=== PATIENT | female | born 1950 | race Caucasian/White ===

== ENCOUNTER 2017-06-23 20:34 | Emergency (ER) | payer MEDICARE, OTHER ==
[~2017-06-23] VITALS: Ht 162.6 cm; Wt 86.2 kg
[2017-06-23 21:25] LABS: BASOPHILS ABSOLUTE AUTO 0.03 K/mm3 (0.00-0.23); BASOPHILS PERCENT AUTO 0 % (0-2); EOSINOPHILS ABSOLUTE AUTO 0.11 K/mm3 (0.00-0.68); EOSINOPHILS PERCENT AUTO 2 % (0-6); Hematocrit 37.6 % (33.0-51.0); Hemoglobin 12.5 g/dL (11.5-16.0); IMMATURE GRAN ABSOLUTE AUTO 0.02 K/mm3 (0.00-0.10); IMMATURE GRAN PERCENT AUTO 0 % (0-1); LYMPHOCYTES PERCENT AUTO 32 % (21-46); MONOCYTES ABSOLUTE AUTO 0.46 K/mm3 (0.16-1.47); MONOCYTES PERCENT AUTO 7 % (4-13); Mean Corpuscular HGB Conc 33.2 g/dL (31.5-36.5); Mean Corpuscular Volume 96 fL (80-100); Mean Platelet Volume 10.6 fL (9.1-12.4); NEUTROPHILS ABSOLUTE AUTO 4.01 K/mm3 (1.96-9.15); NEUTROPHILS PERCENT AUTO 59 % (41-73); Platelet Count 260 K/mm3 (150-400); RDW Coefficient Variation 11.9 % (11.7-14.2); Red Blood Cell Count 3.91 M/mm3 (3.80-5.20); White Blood Cell Count 6.83 K/mm3 (4.00-11.30)
[2017-06-23 21:41] LABS: Bilirubin, Total 0.3 mg/dL (0.1-1.0); Bun/Creatinine Ratio 14.6 (12.0-20.0); Calcium, Blood 9.4 mg/dL (8.5-10.1); Creatinine, Blood 1.03 mg/dL (0.40-1.00); Globulin, Blood 4.2 g/dL (2.2-4.0); Potassium, Blood 4.4 mmol/L (3.5-5.5); Total Protein, Blood 8.2 g/dL (6.4-8.2)
[2017-06-23] MEDS ORDERED: PIOG30 PO (23:50)
[2017-06-23] MEDS ORDERED: ONDA4 PO (23:50)
[2017-06-23] MEDS ORDERED: LEVSOD75 PO (23:50)
[2017-06-23] MEDS ORDERED: HYDCHL25 PO (23:51)
[2017-06-23] MEDS ORDERED: CYCL10 PO (23:51)
[2017-06-23] MEDS ORDERED: LISI20 PO (23:51)
[2017-06-23] MEDS ORDERED: IBUP600 PO (23:51)
[2017-06-23] MEDS ORDERED: LOVA40 PO (23:51)
[2017-06-23] MEDS ORDERED: METF500C PO (23:52)
[2017-06-23] MEDS ORDERED: ASPI81CH PO (23:52)
[2017-06-24 00:15] LABS: Source, Urine Clean Catch
[2017-06-24 00:18] LABS: Bilirubin, Urine Neg (Neg); Blood, Urine 1+ (Neg); Glucose Qualitative, Urine Neg (Neg); Ketones, Urine Neg (Neg); Leukocyte Esterase, Urine 3+ (Neg); Nitrite, Urine Neg (Neg); Protein, Urine 2+ (Neg); Urobilinogen, Urine NORM (Normal)
[2017-06-24 00:24] LABS: Appearance, Urine Hazy (Clear); Color, Urine Yellow (P-Yellow)
[2017-06-24 00:25] LABS: Amorphous Light (0-Heavy); Bacteria Mod /hpf; Red Blood Cells, Urine 0-2 /hpf (0-2); Squamous Epithelial Cells Few /hpf (Few); White Blood Cells, Urine 25-50 /hpf (0-5)
[2017-06-24 00:35] LABS: Influenza A Negative (NEGATIVE); Influenza B Negative (NEGATIVE)
[2017-06-24] MEDS ORDERED: Zofran Odt4 MG PO (00:42)
[2017-06-24] MEDS ORDERED: CEPH500 PO ×2 (00:42→16:12)
[2018-03-19] MEDS ORDERED: ASPI325 PO (21:53)
[2018-03-19] MEDS ORDERED: HYDHCL25 PO (21:59)
[2018-03-23] MEDS ORDERED: Vistaril25 MG PO (17:05)
== END 2017-06-24 01:53 | disposition home or self-care (01) ==
LOC: ER 20:34
PROVIDERS: Emergency Medicine
DX: N39.0 Urinary tract infection, site not specified (principal); E86.0 Dehydration; R11.2 Nausea with vomiting, unspecified; Z88.2 Allergy status to sulfonamides; Z88.5 Allergy status to narcotic agent; I10 Essential (primary) hypertension
CPT/HCPCS: 36415; 80053; 81001; 83690; 85025; 87086; 87804; 96361; 96374; 96375; 99283; J0696; J0780; J7030

== ENCOUNTER 2017-06-28 11:16 | Inpatient (IN) | payer MEDICARE, OTHER ==
[~2017-06-28] VITALS: Ht 162.6 cm; Wt 111.2 kg
[~2017-06-28 11:16] MED LIST: ASPI81CH PO; CEPH500 PO; CYCL10 PO; HYDCHL25 PO; IBUP600 PO; LEVSOD75 PO; LISI20 PO; LOVA40 PO; METF500C PO; ONDA4 PO; PIOG30 PO; Zofran Odt4 MG PO
[2017-06-28 11:50] LABS: BASOPHILS ABSOLUTE AUTO 0.03 K/mm3 (0.00-0.23); BASOPHILS PERCENT AUTO 0 % (0-2); EOSINOPHILS ABSOLUTE AUTO 0.04 K/mm3 (0.00-0.68); EOSINOPHILS PERCENT AUTO 1 % (0-6); Hematocrit 37.2 % (33.0-51.0); Hemoglobin 12.6 g/dL (11.5-16.0); IMMATURE GRAN ABSOLUTE AUTO 0.02 K/mm3 (0.00-0.10); IMMATURE GRAN PERCENT AUTO 0 % (0-1); LYMPHOCYTES PERCENT AUTO 41 % (21-46); MONOCYTES ABSOLUTE AUTO 0.64 K/mm3 (0.16-1.47); MONOCYTES PERCENT AUTO 7 % (4-13); Mean Corpuscular HGB 32.1 pg (26.0-34.0); Mean Corpuscular HGB Conc 33.9 g/dL (31.5-36.5); Mean Corpuscular Volume 95 fL (80-100); Mean Platelet Volume 10.3 fL (9.1-12.4); NEUTROPHILS ABSOLUTE AUTO 4.36 K/mm3 (1.96-9.15); NEUTROPHILS PERCENT AUTO 50 % (41-73); Platelet Count 230 K/mm3 (150-400); RDW Coefficient Variation 11.9 % (11.7-14.2); RDW Standard Deviation 41.3 fL (35.1-46.3); Red Blood Cell Count 3.92 M/mm3 (3.80-5.20); White Blood Cell Count 8.69 K/mm3 (4.00-11.30)
[2017-06-28 12:15] LABS: Alanine Aminotransfer (ALT/SGP 33 U/L (12-78); Albumin, Blood 3.6 g/dL (3.4-5.0); Albumin/Globulin Ratio 0.9 (0.8-1.8); Alk Phos 63 U/L (50-136); Anion Gap 13 mmol/L (6-16); Aspartate Aminotrans (AST/SGOT 23 U/L (12-37); Bilirubin, Total 0.3 mg/dL (0.1-1.0); Blood Urea Nitrogen 19 mg/dL (8-24); Bun/Creatinine Ratio 17.1 (12.0-20.0); CO2, Blood 27 mmol/L (21-32); Calcium, Blood 9.3 mg/dL (8.5-10.1); Chloride, Blood 85 mmol/L (98-108); Creatinine, Blood 1.11 mg/dL (0.40-1.00); Globulin, Blood 3.8 g/dL (2.2-4.0); Glomerular Filtration Rate 52 (60-); Glucose, Blood 161 mg/dL (70-99); Potassium, Blood 3.4 mmol/L (3.5-5.5); Sodium, Blood 125 mmol/L (136-145); Total Protein, Blood 7.4 g/dL (6.4-8.2); Troponin I <0.015 ng/mL (0.000-0.040)
[2017-06-28 13:26] LABS: Source, Urine Voided
[2017-06-28 13:40] LABS: Appearance, Urine Clear (Clear); Bilirubin, Urine Neg (Neg); Blood, Urine Neg (Neg); Color, Urine Yellow (P-Yellow); Glucose Qualitative, Urine Neg (Neg); Ketones, Urine 1+ (Neg); Leukocyte Esterase, Urine Neg (Neg); Nitrite, Urine Neg (Neg); Protein, Urine 2+ (Neg); Urobilinogen, Urine NORM (Normal)
[2017-06-28 13:59] LABS: Bacteria Mod /hpf; Red Blood Cells, Urine 0-2 /hpf (0-2); Squamous Epithelial Cells Few /hpf (Few); White Blood Cells, Urine 0-2 /hpf (0-5)
[2017-06-28 17:53] LABS: Influenza A Negative (NEGATIVE); Influenza B Negative (NEGATIVE)
[2017-06-29 05:17] LABS: BASOPHILS ABSOLUTE AUTO 0.03 K/mm3 (0.00-0.23); BASOPHILS PERCENT AUTO 0 % (0-2); EOSINOPHILS ABSOLUTE AUTO 0.11 K/mm3 (0.00-0.68); EOSINOPHILS PERCENT AUTO 1 % (0-6); Hematocrit 33.8 % (33.0-51.0); Hemoglobin 11.6 g/dL (11.5-16.0); IMMATURE GRAN ABSOLUTE AUTO 0.03 K/mm3 (0.00-0.10); IMMATURE GRAN PERCENT AUTO 0 % (0-1); LYMPHOCYTES ABSOLUTE AUTO 3.91 K/mm3 (0.84-5.20); LYMPHOCYTES PERCENT AUTO 42 % (21-46); MONOCYTES ABSOLUTE AUTO 0.83 K/mm3 (0.16-1.47); MONOCYTES PERCENT AUTO 9 % (4-13); Mean Corpuscular HGB 32.4 pg (26.0-34.0); Mean Corpuscular HGB Conc 34.3 g/dL (31.5-36.5); Mean Corpuscular Volume 94 fL (80-100); Mean Platelet Volume 10.4 fL (9.1-12.4); NEUTROPHILS ABSOLUTE AUTO 4.52 K/mm3 (1.96-9.15); NEUTROPHILS PERCENT AUTO 48 % (41-73); Platelet Count 244 K/mm3 (150-400); RDW Standard Deviation 41.7 fL (35.1-46.3); Red Blood Cell Count 3.58 M/mm3 (3.80-5.20); White Blood Cell Count 9.43 K/mm3 (4.00-11.30)
[2017-06-29 05:45] LABS: Anion Gap 9 mmol/L (6-16); Blood Urea Nitrogen 16 mg/dL (8-24); Bun/Creatinine Ratio 16.5 (12.0-20.0); CO2, Blood 28 mmol/L (21-32); Calcium, Blood 8.4 mg/dL (8.5-10.1); Chloride, Blood 92 mmol/L (98-108); Creatinine, Blood 0.97 mg/dL (0.40-1.00); Glomerular Filtration Rate >60 (60-); Glucose, Blood 92 mg/dL (70-99); Potassium, Blood 3.4 mmol/L (3.5-5.5); Sodium, Blood 129 mmol/L (136-145)
[2017-06-30 06:06] LABS: BASOPHILS ABSOLUTE AUTO 0.04 K/mm3 (0.00-0.23); BASOPHILS PERCENT AUTO 1 % (0-2); EOSINOPHILS ABSOLUTE AUTO 0.31 K/mm3 (0.00-0.68); EOSINOPHILS PERCENT AUTO 4 % (0-6); Hematocrit 32.7 % (33.0-51.0); Hemoglobin 11.2 g/dL (11.5-16.0); IMMATURE GRAN ABSOLUTE AUTO 0.03 K/mm3 (0.00-0.10); IMMATURE GRAN PERCENT AUTO 0 % (0-1); LYMPHOCYTES ABSOLUTE AUTO 3.33 K/mm3 (0.84-5.20); LYMPHOCYTES PERCENT AUTO 40 % (21-46); MONOCYTES ABSOLUTE AUTO 0.66 K/mm3 (0.16-1.47); MONOCYTES PERCENT AUTO 8 % (4-13); Mean Corpuscular HGB 32.5 pg (26.0-34.0); Mean Corpuscular HGB Conc 34.3 g/dL (31.5-36.5); Mean Corpuscular Volume 95 fL (80-100); Mean Platelet Volume 10.5 fL (9.1-12.4); NEUTROPHILS ABSOLUTE AUTO 4.03 K/mm3 (1.96-9.15); NEUTROPHILS PERCENT AUTO 48 % (41-73); Platelet Count 226 K/mm3 (150-400); RDW Coefficient Variation 11.9 % (11.7-14.2); RDW Standard Deviation 40.9 fL (35.1-46.3); Red Blood Cell Count 3.45 M/mm3 (3.80-5.20)
[2017-06-30 06:33] LABS: Magnesium, Blood 1.5 mg/dL (1.6-2.4)
[2017-06-30 06:34] LABS: Anion Gap 8 mmol/L (6-16); Blood Urea Nitrogen 9 mg/dL (8-24); Bun/Creatinine Ratio 10.3 (12.0-20.0); CO2, Blood 27 mmol/L (21-32); Calcium, Blood 8.3 mg/dL (8.5-10.1); Chloride, Blood 89 mmol/L (98-108); Creatinine, Blood 0.88 mg/dL (0.40-1.00); Glomerular Filtration Rate >60 (60-); Glucose, Blood 118 mg/dL (70-99); Potassium, Blood 3.6 mmol/L (3.5-5.5); Sodium, Blood 124 mmol/L (136-145)
[2017-06-30 14:46] LABS: Bun/Creatinine Ratio 10.9 (12.0-20.0); Calcium, Blood 8.4 mg/dL (8.5-10.1); Creatinine, Blood 1.01 mg/dL (0.40-1.00); Potassium, Blood 4.2 mmol/L (3.5-5.5)
[2017-07-01 06:43] LABS: Anion Gap 5 mmol/L (6-16); Blood Urea Nitrogen 11 mg/dL (8-24); Bun/Creatinine Ratio 11.9 (12.0-20.0); CO2, Blood 28 mmol/L (21-32); Calcium, Blood 8.1 mg/dL (8.5-10.1); Chloride, Blood 100 mmol/L (98-108); Creatinine, Blood 0.92 mg/dL (0.40-1.00); Glomerular Filtration Rate >60 (60-); Glucose, Blood 119 mg/dL (70-99); Sodium, Blood 133 mmol/L (136-145)
[2017-07-01] MEDS ORDERED: ONDA4 PO (08:12)
[2017-07-01] MEDS ORDERED: Magnesium500 MG PO (08:13)
[2017-07-01] MEDS ORDERED: PANT20 PO (08:14)
[2018-03-19] MEDS ORDERED: ASPI325 PO (21:53)
[2018-03-19] MEDS ORDERED: HYDHCL25 PO (21:59)
[2018-03-23] MEDS ORDERED: Vistaril25 MG PO (17:05)
== END 2017-07-01 09:52 | disposition home or self-care (01) | DRG 641 ==
LOC: ER 11:16 → MEDS 14:05
PROVIDERS: Internal Medicine; Physician Assistant
DX: E87.1 Hypo-osmolality and hyponatremia (principal); E83.42 Hypomagnesemia; E03.9 Hypothyroidism, unspecified; E11.9 Type 2 diabetes mellitus without complications; E78.5 Hyperlipidemia, unspecified; B95.5 Unspecified streptococcus as the cause of diseases classified elsewhere; N39.0 Urinary tract infection, site not specified; E86.0 Dehydration; I10 Essential (primary) hypertension; E87.6 Hypokalemia; R53.1 Weakness; Z79.82 Long term (current) use of aspirin; Z79.899 Other long term (current) drug therapy; Z88.5 Allergy status to narcotic agent; Z88.2 Allergy status to sulfonamides
CPT/HCPCS: 36415; 74160; 80048; 80053; 81001; 82947; 83690; 83735; 83880; 84484; 85025; 87086; 87804; 93005; 93010; 96361; 96374; 97161; 97530; 99285; C9113; G8978; G8979; G8980; J1650; J2405; J3475; J7030; P9612; Q9967

== ENCOUNTER 2022-06-22 23:54 | Inpatient (IN) | payer MEDICARE, OTHER ==
[~2022-06-22] VITALS: Ht 162.6 cm; Wt 104.1 kg
[~2022-06-22 23:54] MED LIST changes: +ASPI325 PO; +HYDHCL25 PO; +Magnesium500 MG PO; +PANT20 PO; +Vistaril25 MG PO
[2022-06-23 00:50] LABS: BASOPHILS ABSOLUTE AUTO 0.04 K/mm3 (0.00-0.23); BASOPHILS PERCENT AUTO 1 % (0-2); EOSINOPHILS PERCENT AUTO 4 % (0-6); Hemoglobin 12.5 g/dL (11.5-16.0); IMMATURE GRAN ABSOLUTE AUTO 0.03 K/mm3 (0.00-0.10); IMMATURE GRAN PERCENT AUTO 0 % (0-1); LYMPHOCYTES ABSOLUTE AUTO 2.73 K/mm3 (0.84-5.20); LYMPHOCYTES PERCENT AUTO 32 % (21-46); MONOCYTES ABSOLUTE AUTO 0.64 K/mm3 (0.16-1.47); MONOCYTES PERCENT AUTO 8 % (4-13); Mean Corpuscular HGB 32.1 pg (26.0-34.0); Mean Corpuscular HGB Conc 32.1 g/dL (31.5-36.5); Mean Corpuscular Volume 100 fL (80-100); Mean Platelet Volume 11.8 fL (9.1-12.4); NEUTROPHILS PERCENT AUTO 56 % (41-73); Platelet Count 183 K/mm3 (150-400); RDW Coefficient Variation 13.3 % (11.7-14.2); RDW Standard Deviation 49.1 fL (35.1-46.3); Red Blood Cell Count 3.89 M/mm3 (3.80-5.20); White Blood Cell Count 8.44 K/mm3 (4.00-11.30)
[2022-06-23 00:58] LABS: Influenza A, PCR NEGATIVE (NEGATIVE); Influenza B, PCR NEGATIVE (NEGATIVE); SARS-Cov-2 (COVID-19) PCR, MMC NEGATIVE (NEGATIVE)
[2022-06-23 01:03] LABS: Source, Urine Straight Cath
[2022-06-23 01:13] LABS: Resp Syncytial Virus, PCR POSITIVE (NEGATIVE)
[2022-06-23 01:14] LABS: Magnesium, Blood 1.4 mg/dL (1.6-2.4)
[2022-06-23 01:17] LABS: Albumin, Blood 3.5 g/dL (3.4-5.0); Albumin/Globulin Ratio 0.9 (0.8-1.8); Bilirubin, Total 0.2 mg/dL (0.1-1.0); Bun/Creatinine Ratio 13.6 (12.0-20.0); Calcium, Blood 8.5 mg/dL (8.5-10.1); Creatinine, Blood 1.4 mg/dL (0.40-1.00); Globulin, Blood 3.7 g/dL (2.2-4.0); Potassium, Blood 4.5 mmol/L (3.5-5.5); Thyroid Stimulating Hormone 1.52 uIU/mL (0.360-4.800); Total Protein, Blood 7.2 g/dL (6.4-8.2)
[2022-06-23 01:54] LABS: Bilirubin, Urine Neg (Neg); Blood, Urine Neg (Neg); Glucose Qualitative, Urine 4+ (Neg); Ketones, Urine Neg (Neg); Leukocyte Esterase, Urine Neg (Neg); Nitrite, Urine Neg (Neg); Protein, Urine 1+ (Neg); Specific Gravity, Urine 1.015 (1.003-1.022); Urobilinogen, Urine NORM (Normal)
[2022-06-23 02:01] LABS: Appearance, Urine Clear (Clear); Color, Urine Yellow (P-Yellow)
--- NOTE | 2022-06-23 05:13 | NUR ---
ASSUMED CARE OF PT AT 0425 PT A/O X4. NO FAMILY WITH PT. HR 90'S. BP WNL. LUNG SOUNDS CLEAR BILATERALLY THROUGHOUT. SCATTERED BRUISING THROUGHOUT. NO ABVIOUSE WOUNDS ON COCCYX AREA. SEE FULL ASSESSMENT FOR FURTHER INFO.
--- NOTE | 2022-06-23 06:33 | NUR ---
END OF SHIFT SUMMARY PT A/O X4. NO FAMILY WITH PT. PT ON CELL PHONE MULTPILE TIMES TALKING WITH FAMILY AND FRIENDS GIVING AN UPDATE ON HER OWN STATUS. CARDIAC-BP AND HR WNL- NO LEVOPHED STARTED ON PT AT ALL AT THIS POINT. SBP 130'S. RESP-LUNG SOUNDS CLEAR BILATERALLY THROUGHOUT. NON PRODUCTIVE COUGH. GI, - CONTINENT OF BOWEL AND BLADDER EXCEPT WHEN COUGHING. URINE WICKING SYSTEM SET UP D/T AMOUNT OF URINE LOSS WHEN COUGHING. LAST BM 06/22/22. WILL CONTINUE TO MONITOR PT UNTIL REPORT GIVEN TO AM RN.
--- NOTE | 2022-06-23 08:00 | NUR ---
PT A&OX4-REPORTS 12/13 HEACACHE. MEDICATED WITH TYLENOL PER PT REQUEST. PT REFUSED AM CARE-BOOSTED IN BED AND MEAL TRAY PROVIDED. ECG SHOWS SR. BP STABLE. NO NOTED EDEMA. LUNGS WITH INSPIRATORY WHEEZES TO LOWER LOBES. PT HAS MOIST, NONPRODUCTIVE COUGH-SATS>90% ON RA.PT REQUEST "TESSALON PERLES" FOR COUGH. MILD SOB WITH EXERTION. PT DENIES GI DISTRESS. CBG 147 0 COVERAGE INDICATED. PT IS DIFFICULT SABRA-PUNCTURE. LAB ATTEMPTED DRAW X 3 BEFORE SPECIMEN OBTAINED. SKIN C/D/I. PT HAS CALL LIGHT IN REACH-WILL CALL FOR ASSIST PRN. ANTICIPATE STATUS CHANGE LATER THIS AM.
[2022-06-23 08:25] LABS: BASOPHILS ABSOLUTE AUTO 0.03 K/mm3 (0.00-0.23); BASOPHILS PERCENT AUTO 0 % (0-2); EOSINOPHILS ABSOLUTE AUTO 0.19 K/mm3 (0.00-0.68); EOSINOPHILS PERCENT AUTO 3 % (0-6); Hematocrit 37.2 % (33.0-51.0); Hemoglobin 12.1 g/dL (11.5-16.0); IMMATURE GRAN ABSOLUTE AUTO 0.02 K/mm3 (0.00-0.10); IMMATURE GRAN PERCENT AUTO 0 % (0-1); LYMPHOCYTES PERCENT AUTO 38 % (21-46); MONOCYTES ABSOLUTE AUTO 0.61 K/mm3 (0.16-1.47); MONOCYTES PERCENT AUTO 9 % (4-13); Mean Corpuscular HGB 32.2 pg (26.0-34.0); Mean Corpuscular HGB Conc 32.5 g/dL (31.5-36.5); Mean Corpuscular Volume 99 fL (80-100); Mean Platelet Volume 11.4 fL (9.1-12.4); NEUTROPHILS ABSOLUTE AUTO 3.58 K/mm3 (1.96-9.15); NEUTROPHILS PERCENT AUTO 50 % (41-73); Platelet Count 184 K/mm3 (150-400); RDW Coefficient Variation 13.2 % (11.7-14.2); RDW Standard Deviation 48.2 fL (35.1-46.3); Red Blood Cell Count 3.76 M/mm3 (3.80-5.20); White Blood Cell Count 7.13 K/mm3 (4.00-11.30)
[2022-06-23 08:45] LABS: Albumin, Blood 3.3 g/dL (3.4-5.0); Albumin/Globulin Ratio 0.9 (0.8-1.8); Bilirubin, Total 0.2 mg/dL (0.1-1.0); Bun/Creatinine Ratio 13.2 (12.0-20.0); Calcium, Blood 8.1 mg/dL (8.5-10.1); Creatinine, Blood 1.29 mg/dL (0.40-1.00); Globulin, Blood 3.7 g/dL (2.2-4.0); Potassium, Blood 4.5 mmol/L (3.5-5.5)
--- NOTE | 2022-06-23 09:30 | NUR ---
DR. SAMPSON IN TO SEE PT. FULL UPDATE GIVEN. STATUS CHANGED TO MED.
--- NOTE | 2022-06-23 09:47 | NUR ---
PT MED WITH TESSALON PERLES FOR COUGH. PT REPORTS THAT HER HEADACHE HAS COMPLETELY RESOLVED.
--- NOTE | 2022-06-23 12:00 | NUR ---
PT WATCHING TV WITHOUT NOTED DISTRESS. VSS. SATS>90% ON RA. PT HAS CALL LIGHT IN REACH AND MAKES HER NEEDS KNOWN. PT REPORTS THAT HER COUGH HAS IMPROVED SINCE TESSALON GIVEN.
--- NOTE | 2022-06-23 17:05 | NUR ---
SHIFT SUMMARY PATIENT IS ALERT AND ORIENTED. PATIENT HAS BEEN IND IN ROOM. PATIENT HAS HAD NO ACUTE EVENTS THIS SHIFT. VITAL SIGNS REVIEWED. PATIENT WAS A RECENT TRANSFER FROM ICU. PATIENT HAS NOT COMPLAINED OF PAIN, SOB OR VOMITTING. PATIENT HAS COMPLAINED OF NAUSEA AND MEDICATED PER EMAR. BED IN LOCKED AND LOWEST POSITION. CALL LIGHT IN PLACE. WILL MONITOR UNTIL SHIFT CHANGE.
[2022-06-24 04:53] LABS: BASOPHILS ABSOLUTE AUTO 0.04 K/mm3 (0.00-0.23); BASOPHILS PERCENT AUTO 1 % (0-2); EOSINOPHILS PERCENT AUTO 6 % (0-6); Hematocrit 39.3 % (33.0-51.0); Hemoglobin 12.7 g/dL (11.5-16.0); IMMATURE GRAN ABSOLUTE AUTO 0.02 K/mm3 (0.00-0.10); IMMATURE GRAN PERCENT AUTO 0 % (0-1); LYMPHOCYTES ABSOLUTE AUTO 3.28 K/mm3 (0.84-5.20); LYMPHOCYTES PERCENT AUTO 49 % (21-46); MONOCYTES ABSOLUTE AUTO 0.63 K/mm3 (0.16-1.47); MONOCYTES PERCENT AUTO 10 % (4-13); Mean Corpuscular HGB 31.8 pg (26.0-34.0); Mean Corpuscular HGB Conc 32.3 g/dL (31.5-36.5); Mean Corpuscular Volume 98 fL (80-100); Mean Platelet Volume 11.2 fL (9.1-12.4); NEUTROPHILS ABSOLUTE AUTO 2.27 K/mm3 (1.96-9.15); NEUTROPHILS PERCENT AUTO 34 % (41-73); Platelet Count 202 K/mm3 (150-400); RDW Coefficient Variation 13.1 % (11.7-14.2); RDW Standard Deviation 46.5 fL (35.1-46.3); White Blood Cell Count 6.64 K/mm3 (4.00-11.30)
[2022-06-24 05:38] LABS: Albumin, Blood 3.5 g/dL (3.4-5.0); Anion Gap 5 mmol/L (6-16); Blood Urea Nitrogen 17 mg/dL (8-24); Bun/Creatinine Ratio 15.3 (12.0-20.0); CO2, Blood 25 mmol/L (21-32); Calcium, Blood 8.9 mg/dL (8.5-10.1); Chloride, Blood 107 mmol/L (98-108); Creatinine, Blood 1.11 mg/dL (0.40-1.00); Glomerular Filtration Rate 53 (60-); Glucose, Blood 160 mg/dL (70-99); Phosphorus, Blood 2.8 mg/dL (2.5-4.9); Potassium, Blood 4.7 mmol/L (3.5-5.5); Sodium, Blood 137 mmol/L (136-145)
--- NOTE | 2022-06-24 06:41 | NUR ---
Mrs. Mullins is AOx4, lung sounds diminished in lower fiels. She is maintaing sats over 94% on room air. Had x1 episode of a coughing spell and medicated with Tessalon pearls, and tylernol for discomfort. Able to reposition independently, and x1 minimal assist out of bed. Labs done this morning.
[2022-06-24] MEDS ORDERED: BENZ100A PO (11:13)
--- NOTE | 2022-06-24 11:45 | NUR ---
DISCHARGE PROCESS RN FAXED MEDICATION RX'S TO [facility], FAX CONFIRMATION RECEIVED AND PLACED IN CHART. LINK FABRIC MACHINE OPERATOR II ARACELY REMOVED IV'S, PT TOLERATED PROCEDURE WELL. RN REVIEWED DISCHARGE EDUCATION WITH PT, INCLUDING NEED TO PURCHASE A BP CUFF AND TAKE BP PRIOR TO TAKING LISINOPRIL, AND PARAMETERS FOR HOLDING MED. PT ADVISED TO CALL PCP AND SCHEDULE NEXT AVAILABLE HOSPITAL F/U APPT. PT HAS NO FURTHER QUESTIONS AT THIS TIME. BELONGINGS RETURNED TO PT.
--- NOTE | 2022-06-24 12:00 | NUR ---
discharge note pt was wheeled out via wheelchair by MORENITA , with all personal belongings returned to her. she was discharged to private vehicle driven by her .
--- NOTE | 2022-06-24 12:00 | NUR ---
DISCHARGE NOTE- PT WAS ESCORTED OUT TO THE PT ENTRANCE VIA WC BY THE VULCANIZING MACHINE OPERATOR, NO S&S OF DITRESS AT THAT TIME.
== END 2022-06-24 12:23 | disposition home or self-care (01) | DRG 202 ==
LOC: ER 23:54 → ICUW 06-23 03:47 → ICUE 06-23 03:47 → MEDS 06-23 13:05
PROVIDERS: Family Medicine; Student in an Organized Health Care Education/Training Program; ADMIT Internal Medicine
PROC: 3E033XZ Introduction of Vasopressor into Peripheral Vein, Percutaneous Approach (ICD-10-PCS; principal; 2022-06-23)
DX: J21.0 Acute bronchiolitis due to respiratory syncytial virus (principal); E87.20 Acidosis, unspecified; J20.5 Acute bronchitis due to respiratory syncytial virus; I95.9 Hypotension, unspecified; E11.22 Type 2 diabetes mellitus with diabetic chronic kidney disease; E83.42 Hypomagnesemia; N18.30 Chronic kidney disease, stage 3 unspecified; F41.9 Anxiety disorder, unspecified; I12.9 Hypertensive chronic kidney disease with stage 1 through stage 4 chronic kidney disease, or unspecified chronic kidney disease; K21.9 Gastro-esophageal reflux disease without esophagitis; E03.9 Hypothyroidism, unspecified; G89.29 Other chronic pain; E78.5 Hyperlipidemia, unspecified; W18.30XA Fall on same level, unspecified, initial encounter; Z20.822 Contact with and (suspected) exposure to COVID-19; Z88.2 Allergy status to sulfonamides; Z88.5 Allergy status to narcotic agent; Z79.899 Other long term (current) drug therapy; Z79.811 Long term (current) use of aromatase inhibitors; Z79.84 Long term (current) use of oral hypoglycemic drugs; Z79.82 Long term (current) use of aspirin; Z90.49 Acquired absence of other specified parts of digestive tract
CPT/HCPCS: 0241U; 36415; 51701; 71045; 80053; 80069; 82947; 83605; 83735; 83880; 84443; 84484; 85025; 86850; 86900; 86901; 93005; 93010; 96365-59; 96367-59; 99285-25; A9270; C9113; J1650; J1815; J2543; J3370; J3475; J7030; J7060

== ENCOUNTER 2025-04-13 16:08 | Emergency (ER) | payer MEDICARE, OTHER ==
[~2025-04-13] VITALS: Ht 167.6 cm; Wt 72.6 kg
[~2025-04-13 16:08] MED LIST changes: +BENZ100A PO
[2025-04-13 16:54] LABS: BASOPHILS ABSOLUTE AUTO 0.05 K/mm3 (0.00-0.23); BASOPHILS PERCENT AUTO 1 % (0-2); EOSINOPHILS ABSOLUTE AUTO 0.17 K/mm3 (0.00-0.68); EOSINOPHILS PERCENT AUTO 2 % (0-6); Hematocrit 43.6 % (33.0-51.0); Hemoglobin 14.5 g/dL (11.5-16.0); IMMATURE GRAN ABSOLUTE AUTO 0.02 K/mm3 (0.00-0.10); IMMATURE GRAN PERCENT AUTO 0 % (0-1); LYMPHOCYTES ABSOLUTE AUTO 3.50 K/mm3 (0.84-5.20); LYMPHOCYTES PERCENT AUTO 37 % (21-46); MONOCYTES ABSOLUTE AUTO 0.77 K/mm3 (0.16-1.47); MONOCYTES PERCENT AUTO 8 % (4-13); Mean Corpuscular HGB Conc 33.3 g/dL (31.5-36.5); Mean Corpuscular Volume 98 fL (80-100); NEUTROPHILS ABSOLUTE AUTO 4.88 K/mm3 (1.96-9.15); NEUTROPHILS PERCENT AUTO 52 % (41-73); NRBC ABSOLUTE 0.03 K/mm3 (0.00-0.02); NRBC Auto 0.3 /100 WBC (0.0-0.2); Platelet Count 330 K/mm3 (150-400); RDW Coefficient Variation 13.2 % (11.7-14.2); RDW Standard Deviation 48.6 fL (35.1-46.3)
[2025-04-13 17:39] LABS: Alanine Aminotransfer (ALT/SGP 38.0 U/L (12-78); Albumin, Blood 4.2 g/dL (3.4-5.0); Albumin/Globulin Ratio 1.2 (0.8-1.8); Anion Gap 6.0 mmol/L (3-11); Aspartate Aminotrans (AST/SGOT 37.0 U/L (12-37); Bilirubin, Total 0.2 mg/dL (0.1-1.0); Blood Urea Nitrogen 13.0 mg/dL (8-24); CO2, Blood 31.0 mmol/L (21-32); Calcium, Blood 10.4 mg/dL (8.5-10.1); Chloride, Blood 102.0 mmol/L (98-108); Creatinine, Blood 1.01 mg/dL (0.40-1.00); Globulin, Blood 3.4 g/dL (2.2-4.0); Glucose, Blood 105.0 mg/dL (70-99); Potassium, Blood 4.4 mmol/L (3.5-5.5); Sodium, Blood 135.0 mmol/L (136-145); Total Protein, Blood 7.6 g/dL (6.4-8.2)
[2025-04-13] MEDS ORDERED: ACET500 PO (18:23)
[2025-04-13] MEDS ORDERED: LIDO700A20 TOP (18:23)
[2025-04-13] MEDS ORDERED: Lidocaine 4% 1 Patch TOP ONE (18:25)
[2025-04-13] MEDS ORDERED: Ketorolac Tromethamine 15mg Vial IM ONE (18:25)
[2025-04-13 19:00] VITALS: BP 162/81
== END 2025-04-13 19:09 | disposition home or self-care (01) ==
LOC: ER 16:08
PROVIDERS: Emergency Medicine; Student in an Organized Health Care Education/Training Program
DX: R20.0 Anesthesia of skin (principal); E11.9 Type 2 diabetes mellitus without complications; Z88.2 Allergy status to sulfonamides; Z79.899 Other long term (current) drug therapy
CPT/HCPCS: 70450; 80053; 85025; 96372; 99284-25; A9270; J1885